=== PATIENT | female | born 1955 | race Caucasian/White ===

== ENCOUNTER → 2017-09-10 12:08 | Outpatient (CLI) | payer OTHER, SELFPAY ==
--- NOTE | 2017-09-10 12:21 | DI.RAD.S_ITS ---
PROCEDURE: XR SHOULDER RT MIN 2V INDICATIONS: R shoulder pain TECHNIQUE: 3 views of the shoulder were acquired. COMPARISON: None. FINDINGS: Bones: No fractures or dislocations. No suspicious bony lesions. Visualized ribs appear intact. There is extensive marginal glenohumeral spurring and mild glenohumeral joint space narrowing. There is severe AC joint degeneration. Soft tissues: No suspicious soft tissue calcifications. IMPRESSION: Right shoulder joint degeneration. Prominent marginal spurring Dictated by: Thong Portillo M.D. on 09/10/2017 at 14:25 Approved by: Thong Portillo M.D. on 09/10/2017 at 14:26
--- NOTE | 2017-09-10 12:21 | DI.RAD.S_ITS ---
PROCEDURE: XR KNEE RT 3V INDICATIONS: R knee pain - please do one weight bearing view TECHNIQUE: 3 views of the knee were acquired. COMPARISON: [facility], , KNEE 3V RIGHT, 12/26/2010, 8:16. FINDINGS: Bones: No fractures or dislocations. No suspicious bony lesions. Mild narrowing of the medial joint space. There is is degenerative spurring. Spurring of the superior pole of the patella. A pair of calcific densities again project in the posterior soft tissues, one of which may be a fabella although, for the other density, cannot exclude subcentimeter loose body Soft tissues: Small right knee joint effusion.. IMPRESSION: Mild degenerative joint disease. Small right knee joint effusion. Small posterior loose body. Dictated by: Thong Portillo M.D. on 09/10/2017 at 14:27 Approved by: Thong Portillo M.D. on 09/10/2017 at 14:29
== END ==
PROVIDERS: Family Provider Physician Assistant; PCP Physician Assistant; Visit Provider Physician Assistant
DX: R53.83 Other fatigue (principal); E03.9 Hypothyroidism, unspecified; M25.561 Pain in right knee; M25.511 Pain in right shoulder
CPT/HCPCS: 36415; 73030; 73562; 84439; 84443

== ENCOUNTER → 2018-01-13 07:22 | Outpatient (CLI) | payer OTHER, SELFPAY ==
[2018-01-13 09:14] LABS: Alanine Aminotransferase 27 IU/L (9-52); Albumin 4.3 g/dL (3.5-5.0); Albumin Globulin Ratio 1.5 (1.0-2.8); Alkaline Phosphatase 70 U/L (38-126); Aspartate Aminotransferase 21 IU/L (14-36); BUN Creatinine Ratio 18.6 (6-22); Blood Urea Nitrogen 13 mg/dL (7-17); Calcium 8.9 mg/dL (8.4-10.2); Carbon Dioxide 29 mmol/L (22-32); Chloride 104 mmol/L (98-107); Cholesterol 234 mg/dL (140-199); Estimated Glomerular Filt Rate > 60.0 mL/min (>60); Globulin 2.9 g/dL (1.7-4.1); Glucose 109 mg/dL (80-110); HDL Cholesterol 48 mg/dL (40-60); HEMOLYSIS < 15 (0-50); LDL Cholesterol Calculated 163 mg/dL (<100); Potassium 3.9 mmol/L (3.4-5.1); Sodium 145 mmol/L (137-145); Total Protein 7.2 g/dL (6.3-8.2); Triglycerides 116 mg/dL (35-150)
[2018-01-13 09:20] LABS: Creatinine Urine Random 108.4 mg/dL
[2018-01-13 09:23] LABS: Microalbumi Creatinin Ratio Ur 6.4 ug/mg CR (<30); Microalbumin Urine Random 0.7 mg/dL (0-1.6)
[2018-01-13 09:48] LABS: Thyroid Stimulating Hormone 1.16 uIU/mL (0.47-4.68)
== END ==
PROVIDERS: Family Provider Physician Assistant; PCP Physician Assistant; Visit Provider Physician Assistant
DX: E03.9 Hypothyroidism, unspecified (principal)
CPT/HCPCS: 36415; 80053; 80061; 82043; 82570; 84443

== ENCOUNTER → 2018-04-14 08:45 | Outpatient (CLI) | payer OTHER, SELFPAY ==
--- NOTE | 2018-04-14 | DI.MG.S_ITS ---
BILATERAL DIGITAL SCREENING MAMMOGRAM 3D/2D WITH CAD: 04/14/2018 CLINICAL: Routine screening. Family history of breast cancer. Comparison is made to exams dated: 03/06/2017 mammogram, 03/21/2015 mammogram, and 02/05/2014 mammogram - [facility]. There are scattered fibroglandular elements in both breasts. Current study was also evaluated with a Computer Aided Detection (CAD) system. No significant masses, calcifications, or other findings are seen in either breast. There has been no significant interval change. IMPRESSION: NEGATIVE There is no mammographic evidence of malignancy. A 1 year screening mammogram is recommended. This exam was interpreted at Station ID: [id number]. NOTE: For mammograms, a report in lay terms will be sent to the patient. Approximately 15% of breast malignancies will not be visualized mammographically. In the management of a palpable breast mass, a negative mammogram must not discourage biopsy of a clinically suspicious lesion. Electronically Signed By: Olga beard/rajinder:04/14/2018 09:24:48 letter sent: Normal Exam ACR BI-RADS Category 1: Negative [id number]
--- NOTE | 2018-04-14 08:47 | DI.US.S_ITS ---
PROCEDURE: US THYROID INDICATIONS: NODULES TECHNIQUE: Real-time scanning was performed of the thyroid gland, with image documentation. COMPARISON: [facility], US, THYROID, 01/24/2017, 11:26. FINDINGS: Right: Thyroid lobe measures 4.5 x 1.4 x 1.7 cm, and is homogeneous in echotexture. Left: Thyroid lobe measures 5.5 x 1.4 x 1.8 cm, and is homogenous in echotexture. Isthmus: 3.7 mm thick. Nodule number: 1 Location: Left mid/inferior lobe Size: 1.6 x 1.2 x 1.3 cm compared to 1.2 x 1.0 x 1.5 cm. Composition: Solid Echogenicity: Hypoechoic Shape: wider than tall. Margins: Smooth Echogenic foci: None Total points: 3 ACR TI-RADS category: 3 Nodule number: 2 Location: Left inferior lobe Size: 1.1 x 0.9 x 0.8 cm compared to 1.1 x 0.8 x 1.0 cm Composition: Solid Echogenicity: Hypoechoic Shape: wider than tall. Margins: Smooth Echogenic foci: None Total points: 3 ACR TI-RADS category: 3 Nodule number: 3 Location: Right mid/inferior lobe Size: 1.2 x 0.8 x 0.9 cm compared to 1.0 x 0.6 x 0.8 cm. Composition: Solid Echogenicity: Hypoechoic Shape: wider than tall. Margins: Smooth Echogenic foci: None Total points: 3 ACR TI-RADS category: 3 Nodule number: 4 Location: Right inferior lobe Size: 1.5 x 1.3 x 1.1 cm compared to 1.4 x 1.0 x 1.1 cm. Composition: Solid Echogenicity: Hypoechoic Shape: wider than tall. Margins: Smooth Echogenic foci: None Total points: 3 ACR TI-RADS category: 3 IMPRESSION: 1. Multiple thyroid nodules as above with lesions 2 through 4 appearing stable. There is a questionable small interval increase in size of lesion 1. While this could be secondary to scanning technique, small interval growth cannot be excluded. Three-month interval followup is recommended or fine needle aspiration. ACR TI-RADS definitions and recommendations: TI-RADS 1 (benign): 0 points. FNA not needed. TI-RADS 2 (not suspicious): 2 points. FNA not needed. TI-RADS 3 (mildly suspicious): 3 points. * FNA if 2.5 cm or larger, follow up if 1.5 cm or larger (at 1, 3, and 5 years). TI-RADS 4 (moderately suspicious): 4-6 points. * FNA if 1.5 cm or larger, follow up if 1 cm or larger (at 1, 2, 3, and 5 years). TI-RADS 5 (highly suspicious): 7 points or more. * FNA if 1 cm or larger, follow up if 0.5 cm or larger (every year for 5 years). Dictated by: Faith Patten M.D. on 04/14/2018 at 10:32 Approved by: Faith Patten M.D. on 04/14/2018 at 10:56
== END ==
PROVIDERS: Family Provider Physician Assistant; PCP Physician Assistant; Visit Provider Physician Assistant
DX: Z12.31 Encounter for screening mammogram for malignant neoplasm of breast (principal); Z80.3 Family history of malignant neoplasm of breast; E04.2 Nontoxic multinodular goiter; E03.9 Hypothyroidism, unspecified
CPT/HCPCS: 76536; 77063; 77067

== ENCOUNTER 2018-09-30 11:41 | Day surgery (SDC) | payer OTHER, SELFPAY ==
[2018-09-30] VITALS (8 sets, daily range): BP systolic 115–174; BP diastolic 56–84; PULSE 68–76; RESP 13–18; TEMP 36.3–36.9; O2SAT 92–99; BMI 30.9
--- NOTE | 2018-09-30 | PATH_ITS ---
[facility] Accession Number: [id number] . 01 Material submitted: . rectum - RECTAL POLYP . 01 Clinical history: . SCREENING COLONOSCOPY . 02 Diagnosis: Rectum, Polyp: Hyperplastic polyp. V/10/01/2018 . 02 Electronically signed: . Matt Retana MD, PhD, Pathologist NPI- [id number] . 01 Gross description: . RECTAL POLYP: Received in formalin is 1 fragment(s) of barton, soft tissue measuring 0.4 x 0.2 x 0.1 cm which is entirely submitted and submitted entirely in 1 cassette(s) /DMC /DMC . 02 Pathologist provided ICD-10: K62.1 . 02 CPT . 748260 Performed at: 01 [facility] [address] [place] [address], [place], [place] [id number] MD Josias Forte MD Phone: [phone] Performed at: 02 [facility] [address] [place], [place] [id number] MD Rosi Palm MD Phone: [phone]
[2018-09-30] MEDS: SODIUM CHLORIDE 0.9% 1,000 ML 100 ML IV (12:30)
--- NOTE | 2018-09-30 12:58 | PM.HP.1 ---
History of Present Illness Date Patient Seen: 09/30/18 Time Patient Seen: 12:58 Chief complaint: [id number] SCREENING COLONOSCOPY Narrative: 63-year-old woman presents 10 years after last screening colonoscopy -no abdominal complaints, no family history of colon or rectal cancers, no family history of colon polyps Tolerated her prep well Patient History Social History household members: spouse Smoking Status: Never smoker second hand exposure: No alcohol intake: current (a glass of wine occasionally when I go out to eat.) substance use type: does not use Family & Social History Social History: household members spouse Tobacco & Substance use: Smoking Status Never smoker alcohol intake current Meds Home Medications Medication Instructions Recorded Confirmed Type [Multi Vitamin] mg PO QDAY #0 01/28/12 08/25/18 History amlodipine 5 mg tablet 5 mg PO QDAY #90 tab 03/31/18 09/30/18 Rx levothyroxine 88 mcg tablet 88 mcg PO QAM #90 tab 03/31/18 09/30/18 Rx lisinopril 40 mg tablet 40 mg PO QDAY #90 tab 03/31/18 09/30/18 Rx meloxicam 7.5 mg tablet See Rx Instructions PO DAILY PRN 03/31/18 09/30/18 Rx #60 tab Allergies Allergy/AdvReac Type Severity Reaction Status Date / Time atorvastatin [ATORVASTATIN] AdvReac Severe MUSCLE Verified 08/25/18 09:16 ACHES [id number]-[id number]-Rjp Reductase AdvReac Severe MUSCLE Verified 08/25/18 09:16 Inhibitor ACHES [[id number] REDUCTASE INHIBITOR] hydrochlorothiazide AdvReac Intermediate REDNESS Verified 08/25/18 09:16 [HYDROCHLOROTHIAZIDE] AND RASH Review of Systems Constitutional Constitutional: Denies fever(s) Eyes Eyes: Denies bulging eyes ENT Ears, Nose, Mouth, and Throat: No lip swelling Cardiovascular Cardiovascular: Denies generalize swelling Respiratory Respiratory: Denies stridor Gastrointestinal Gastrointestinal: Denies coffee ground emesis Musculoskeletal Musculoskeletal: Denies loss of height Integumentary/Breasts Skin/Breast: Denies wounds Neurologic Neurologic: Denies abnormal speech and Denies confusion Psychiatric Psychiatric: Denies confusion Endocrine Endocrine: Denies deepening of the voice Hematologic/Lymphatic Hematologic/Lymphatic: Denies lymphadenopathy Allergic/Immunologic Allergic/Immunologic: Denies lip swelling Exam Vital Signs (past 8 hours): - 09/30/18 12:34 Temperature 97.8 F Pulse Rate 73 Respiratory Rate 15 Blood Pressure 174/84 H Pulse Oximetry 99 Oxygen Delivery Method Room Air Const General: cooperative and healthy appearing Orientation: alert HENMT Head: normal to inspection Nose: nares normal Mouth: oral mucosae normal and lip normal Eyes Eyelids: eyelids normal Conjunctivae: conjunctivae normal Sclera: sclerae normal Chest Chest: other (LCTAB , regular respiratory effort) Cardio Rhythm: regular rhythm Heart Sounds: S1 normal, S2 normal, no gallops, no murmurs and no rubs GI Other: Abdomen soft nontender nondistended Skin General: no rashes or lesions noted Neuro General: alert and awake Psych Appearance: grossly normal Affect: normal affect Assessment & Plan Assessment & Plan narrative: 63-year-old woman here for scheduled screening colonoscopy Risks and benefits of procedures discussed risks including bleeding, perforation, , hypoxia, missed lesion all discussed All questions answered patient ready to proceed
[2018-09-30] MEDS: MIDAZOLAM 5 MG/5 ML VIAL IV ×2 (13:13→13:34)
[2018-09-30] MEDS: fentaNYL 250 MCG/5 ML INJ IV (13:14)
[2018-09-30] MEDS: GLUCAGON,HUMAN RECOMBINANT 1 MG/ML VIAL IV (13:22)
--- NOTE | 2018-09-30 13:43 | PM.OP.ENDO ---
Operative Date/Time/Diagnoses Date of procedure: 09/30/18 Time of procedure: 13:43 Pre-op diagnosis: Colorectal cancer screening Post-op diagnosis: same Procedure & Clinicians Study performed: Complete screening colonoscopy Rectal polypectomy x1 with cold biopsy forceps Same procedure as scheduled: Yes Indications: 63-year-old presents 10 years after her prior screening colonoscopy Surgeon: Wang [place] Procedure Notes SCOAP/Timeout: Complete Procedure in detail: Patient was brought to the endoscopy suite a time-out was completed. She was sedated over the entire course of the procedure with 7 mg of midazolam and 150 micro g of fentanyl. A digital rectal exam without lesions. 160 cm colonoscope was introduced through the rectum and advanced navigate through the folds of the rectum and colon. There was a substantially tight turn at the hepatic flexure which required multiple scope advancements and retractions in order to negotiate. Ultimately this was successful the scope was advanced to level of the cecum. The ileocecal valve was somewhat polypoid looking at it from superiorly as well as inferiorly from IA retroflexed colonoscope, this appeared to be a normal variant. The cecum was identified via the ileocecal valve as above as well as the appendiceal orifice. Both were photographed. The scope was then slowly withdrawn inspecting the colonic mucosa carefully. No mucosal based abnormalities were identified within the colon, there is no diverticular disease. Within the mid rectum there was a single sessile small polyp -that may constitute a hyperplastic polyp. The scope was retroflexed in the distal rectum and no additional lesions were identified Prep was adequate Scope withdrawal time: 11 Sedation minutes: 37 Findings: other findings (Rectal polyp) Specimen(s): other (Rectal polyp) Complications: none Impression: Nearly normal screening colonoscopy Single rectal polyp status post polypectomy Recommendations: Other recommendation (Follow-up in 10 years if rectal polyp is hyperplastic, 5 years if the polyp is adenomatous) Plan for aftercare: PACU and then home Follow up: as needed Disposition: PACU
--- NOTE | 2018-09-30 14:04 | SUR.PHASEI ---
continued oxygen saturation below 90% when sleeping, easily arrousable with good deep breathing when awake. Oxygen applied at 2l/cannula. Allowed to sleep.
== END 2018-09-30 14:39 | disposition home or self-care (01) ==
PROVIDERS: Family Provider Physician Assistant; PCP Physician Assistant; Visit Provider Surgery
PROC: 0DJD8ZZ Inspection of Lower Intestinal Tract, Via Natural or Artificial Opening Endoscopic (ICD-10-PCS; CPT 45378; principal; 2018-09-30 13:00)
DX: Z12.11 Encounter for screening for malignant neoplasm of colon (principal); K62.1 Rectal polyp
CPT/HCPCS: 45380; 99152; 99153; J1610; J2250; J3010

== ENCOUNTER → 2018-11-24 08:09 | Outpatient (CLI) | payer OTHER, SELFPAY ==
[2018-11-24 09:17] LABS: BUN Creatinine Ratio 27.1 (6-22); Blood Urea Nitrogen 19 mg/dL (7-17); Calcium 8.8 mg/dL (8.4-10.2); Carbon Dioxide 26 mmol/L (22-32); Chloride 104 mmol/L (98-107); Cholesterol 237 mg/dL (140-199); Estimated Glomerular Filt Rate > 60.0 mL/min (>60); Glucose 113 mg/dL (80-110); HDL Cholesterol 45 mg/dL (40-60); HEMOLYSIS < 15 (0-50); LDL Cholesterol Calculated 166 mg/dL (<100); Potassium 3.9 mmol/L (3.4-5.1); Sodium 139 mmol/L (137-145); Triglycerides 131 mg/dL (35-150)
[2018-11-24 09:57] LABS: Thyroid Stimulating Hormone 1.12 uIU/mL (0.47-4.68)
== END ==
PROVIDERS: PCP Physician Assistant; Visit Provider Physician Assistant
DX: E03.8 Other specified hypothyroidism (principal); E06.3 Autoimmune thyroiditis; E78.5 Hyperlipidemia, unspecified; I10 Essential (primary) hypertension
CPT/HCPCS: 36415; 80048; 80061; 84443

== ENCOUNTER → 2019-01-21 08:36 | Outpatient (CLI) | payer OTHER, SELFPAY ==
--- NOTE | 2019-01-21 08:37 | DI.RAD.S_ITS ---
PROCEDURE: XR CERVICAL SPINE 2V OR 3V INDICATIONS: neck pain chronic with muscle spasm; possible osteoarthritis TECHNIQUE: 3 view(s) of the cervical spine were acquired. COMPARISON: None. FINDINGS: Bones: No fractures or dislocations to the C7-T1 level. The lateral masses of C1 appear intact on the odontoid view. No suspicious bony lesions. Multilevel bridging anterior osteophytes are present most notable at C4-5 and C5-6. Moderate disc space narrowing is present at C6-7, minimal to mild growth remainder of the cervical spine. Uncovertebral hypertrophy is also present. The Soft tissues: No prevertebral soft tissue swelling. IMPRESSION: Prominent degenerative change most normal from C4-C6 as above. Dictated by: Faith Patten M.D. on 01/21/2019 at 12:30 Approved by: Faith Patten M.D. on 01/21/2019 at 12:35
== END ==
PROVIDERS: PCP Physician Assistant; Visit Provider Physician Assistant
DX: M54.2 Cervicalgia (principal); M47.812 Spondylosis without myelopathy or radiculopathy, cervical region; M62.838 Other muscle spasm; G89.29 Other chronic pain
CPT/HCPCS: 72040

== ENCOUNTER → 2020-04-08 07:28 | Outpatient (CLI) | payer MEDICARE, SELFPAY ==
[2020-04-08] MEDS: COVID-19 VACC #1, MRNA(MOD) 100 MCG/0.5 ML VIAL IM (07:32)
== END ==
PROVIDERS: PCP Physician Assistant; Visit Provider Internal Medicine
DX: Z23 Encounter for immunization (principal)
CPT/HCPCS: 0011A; 91301

== ENCOUNTER → 2020-05-06 09:34 | Outpatient (CLI) | payer MEDICARE, SELFPAY ==
[2020-05-06] MEDS: COVID-19 VACC #2, MRNA(MOD) 100 MCG/0.5 ML VIAL IM (09:37)
== END ==
PROVIDERS: PCP Physician Assistant; Visit Provider Internal Medicine
DX: Z23 Encounter for immunization (principal)
CPT/HCPCS: 0012A; 91301

== ENCOUNTER → 2020-06-28 08:39 | Outpatient (CLI) | payer MEDICARE, SELFPAY ==
--- NOTE | 2020-06-28 08:42 | DI.RAD.S_ITS ---
PROCEDURE: XR KNEE RT 3V INDICATIONS: pain patellar TECHNIQUE: 3 views of the knee were acquired. COMPARISON: [facility], , XR KNEE RT 3V, 09/10/2017, 12:13. [facility], , KNEE 3V RIGHT, 12/26/2010, 8:16. FINDINGS: Bones: No fractures or dislocations. No suspicious bony lesions. Soft tissues: No joint effusion. No suspicious soft tissue calcifications. 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 Patellofemoral joint degenerative osteoarthritis is mild, with mild narrowing both at the medial and lateral facets. No joint effusion or intra-articular loose body is seen. Dictated by: Huber Jones M.D. on 06/28/2020 at 9:46 Approved by: Huber Jones M.D. on 06/28/2020 at 9:48
[2020-06-28 09:48] LABS: Add Manual Diff / Slide Review NO; Basophils Absolute Auto 0 /uL (0-100); Basophils Percent Auto 0.6 % (0-2); Eosinophils Absolute Auto 200 /uL (0-450); Eosinophils Percent Auto 3.1 % (2-4); Hematocrit 42.9 % (36-46); Hemoglobin 14.8 g/dL (12.0-16.0); Lymphocytes Absolute Auto 1600 /uL (1100-4500); Lymphocytes Percent Auto 27.6 % (25-40); Mean Corpuscular HGB Conc 34.5 % (30-36); Mean Corpuscular Volume 84.1 fL (80-100); Monocytes Absolute Auto 500 /uL (0-900); Monocytes Percent Auto 9.1 % (3-14); Neutrophils Absolute Auto 3400 /uL (1500-7000); Neutrophils Percent Auto 59.6 % (50-75); Platelet Count 183 X10^3/uL (150-400); Red Blood Cell Count 5.11 X10^6/uL (4.0-5.2); Red Cell Distribution Width 14.1 % (11.6-14.8); White Blood Cell Count 5.8 X10^3/uL (4.5-11.0)
[2020-06-28 10:02] LABS: Alanine Aminotransferase 21 IU/L (<35); Albumin 4.1 g/dL (3.5-5.0); Albumin Globulin Ratio 1.3 (1.0-2.8); Alkaline Phosphatase 76 U/L (38-126); Aspartate Aminotransferase 22 IU/L (14-36); BUN Creatinine Ratio 29.6 (6-22); Blood Urea Nitrogen 21 mg/dL (7-17); Carbon Dioxide 30 mmol/L (22-32); Chloride 105 mmol/L (98-107); Cholesterol 248 mg/dL (140-199); Estimated Glomerular Filt Rate > 60.0 mL/min (>60); Globulin 3.1 g/dL (1.7-4.1); Glucose 122 mg/dL (80-110); HDL Cholesterol 41 mg/dL (40-60); HEMOLYSIS < 15 (0-50); LDL Cholesterol Calculated 177 mg/dL (<100); Potassium 3.9 mmol/L (3.4-5.1); Sodium 140 mmol/L (137-145); Total Protein 7.2 g/dL (6.3-8.2); Triglycerides 150 mg/dL (35-150)
[2020-06-28 10:13] LABS: Free T3, Triiodothyronine Free 3.16 pg/mL (2.77-5.27); Free T4, Direct Thyroxine 1.38 ng/dL (0.78-2.19)
== END ==
PROVIDERS: PCP Family Medicine; Referring Provider Family Medicine; Visit Provider Family Medicine
DX: G89.29 Other chronic pain (principal); M25.561 Pain in right knee; E03.8 Other specified hypothyroidism; E06.3 Autoimmune thyroiditis; E78.5 Hyperlipidemia, unspecified; I10 Essential (primary) hypertension
CPT/HCPCS: 36415; 73562; 80053; 80061; 84439; 84443; 84481; 85025

== ENCOUNTER → 2022-02-08 07:36 | Outpatient (CLI) | payer MEDICARE, SELFPAY ==
[2022-02-08 08:01] LABS: Add Manual Diff / Slide Review NO; Basophils Absolute Auto 0 /uL (0-100); Basophils Percent Auto 0.6 % (0-2); Eosinophils Absolute Auto 100 /uL (0-450); Eosinophils Percent Auto 2.6 % (2-4); Hematocrit 40.4 % (36-46); Hemoglobin 13.5 g/dL (12.0-16.0); Lymphocytes Absolute Auto 1700 /uL (1100-4500); Lymphocytes Percent Auto 32.8 % (25-40); Mean Corpuscular HGB Conc 33.5 % (30-36); Mean Corpuscular Hemoglobin 28.4 PG (26-34); Monocytes Absolute Auto 600 /uL (0-900); Monocytes Percent Auto 11.7 % (3-14); Neutrophils Absolute Auto 2800 /uL (1500-7000); Neutrophils Percent Auto 52.3 % (50-75); Platelet Count 210 X10^3/uL (150-400); Red Blood Cell Count 4.75 X10^6/uL (4.0-5.2); Red Cell Distribution Width 13.7 % (11.6-14.8); White Blood Cell Count 5.3 X10^3/uL (4.5-11.0)
[2022-02-08 08:19] LABS: Alanine Aminotransferase 24 IU/L (<35); Albumin 3.8 g/dL (3.5-5.0); Albumin Globulin Ratio 1.4 (1.0-2.8); Alkaline Phosphatase 67 U/L (38-126); Aspartate Aminotransferase 21 IU/L (14-36); BUN Creatinine Ratio 24.4 (6-22); Blood Urea Nitrogen 19 mg/dL (7-17); Calcium 8.9 mg/dL (8.4-10.2); Carbon Dioxide 28 mmol/L (22-32); Chloride 104 mmol/L (98-107); Cholesterol 225 mg/dL (140-199); Estimated Glomerular Filt Rate > 60 mL/min (>60); Globulin 2.8 g/dL (1.7-4.1); Glucose 116 mg/dL (80-110); HDL Cholesterol 47 mg/dL (40-60); HEMOLYSIS < 15 (0-50); LDL Cholesterol Calculated 152 mg/dL (<100); Potassium 3.9 mmol/L (3.4-5.1); Sodium 137 mmol/L (137-145); Total Protein 6.6 g/dL (6.3-8.2); Triglycerides 132 mg/dL (35-150)
[2022-02-08 08:41] LABS: TSH w/ Reflex to FT4 0.43 uIU/mL (0.47-4.68)
[2022-02-08 09:06] LABS: Free T4, Direct Thyroxine 1.58 ng/dL (0.78-2.19)
== END ==
PROVIDERS: PCP Family Medicine; Referring Provider Family Medicine; Visit Provider Family Medicine
DX: E03.8 Other specified hypothyroidism (principal); E06.3 Autoimmune thyroiditis; E78.5 Hyperlipidemia, unspecified; I10 Essential (primary) hypertension
CPT/HCPCS: 80053; 80061; 84439; 84443; 85025

== ENCOUNTER → 2022-05-09 07:39 | Outpatient (CLI) | payer MEDICARE, SELFPAY ==
[2022-05-09 10:09] LABS: TSH w/ Reflex to FT4 0.86 uIU/mL (0.47-4.68)
== END ==
PROVIDERS: PCP Family Medicine; Referring Provider Family Medicine; Visit Provider Family Medicine
DX: E03.8 Other specified hypothyroidism (principal); E06.3 Autoimmune thyroiditis
CPT/HCPCS: 36415; 84443

== ENCOUNTER → 2022-05-16 11:06 | Outpatient (CLI) | payer MEDICARE, SELFPAY ==
--- NOTE | 2022-05-16 11:07 | DI.RAD.S_ITS ---
PROCEDURE: XR SHOULDER RT MIN 2V INDICATIONS: shoulder problem TECHNIQUE: 3 views of the shoulder were acquired. COMPARISON: [facility], CR, XR SHOULDER RT MIN 2V, 09/10/2017, 12:13. FINDINGS: Bones: Moderate glenohumeral and moderate to severe acromioclavicular arthrosis. These findings are slightly progressed compared to 2018. No displaced fracture or dislocation. Soft tissues: No suspicious soft tissue calcifications. IMPRESSION: Slightly progressed, advanced arthrosis of the glenohumeral and acromioclavicular joints. Dictated by: Immanuel Cunningham M.D. on 05/16/2022 at 16:22 Approved by: Immanuel Cunningham M.D. on 05/16/2022 at 16:23
== END ==
PROVIDERS: PCP Family Medicine; Referring Provider Family Medicine; Visit Provider Family Medicine
DX: M25.511 Pain in right shoulder (principal); M25.611 Stiffness of right shoulder, not elsewhere classified; G89.29 Other chronic pain; M99.07 Segmental and somatic dysfunction of upper extremity; M19.011 Primary osteoarthritis, right shoulder
CPT/HCPCS: 73030

== ENCOUNTER → 2023-02-16 07:49 | Outpatient (CLI) | payer MEDICARE, SELFPAY ==
[2023-02-16 08:05] LABS: Add Manual Diff / Slide Review NO; Basophils Absolute Auto 0 /uL (0-100); Basophils Percent Auto 0.7 % (0-2); Eosinophils Absolute Auto 300 /uL (0-450); Eosinophils Percent Auto 4.2 % (2-4); Hematocrit 41.7 % (36-46); Hemoglobin 14.3 g/dL (12.0-16.0); Lymphocytes Absolute Auto 1800 /uL (1100-4500); Lymphocytes Percent Auto 29.7 % (25-40); Mean Corpuscular HGB Conc 34.3 % (30-36); Mean Corpuscular Hemoglobin 28.7 PG (26-34); Mean Corpuscular Volume 83.7 fL (80-100); Monocytes Absolute Auto 700 /uL (0-900); Neutrophils Absolute Auto 3400 /uL (1500-7000); Neutrophils Percent Auto 54.4 % (50-75); Platelet Count 229 X10^3/uL (150-400); Red Blood Cell Count 4.98 X10^6/uL (4.0-5.2); Red Cell Distribution Width 14.1 % (11.6-14.8); White Blood Cell Count 6.2 X10^3/uL (4.5-11.0)
[2023-02-16 08:23] LABS: Alanine Aminotransferase 21 IU/L (<35); Albumin Globulin Ratio 1.3 (1.0-2.8); Alkaline Phosphatase 65 U/L (38-126); Aspartate Aminotransferase 23 IU/L (14-36); Blood Urea Nitrogen 19 mg/dL (7-17); Carbon Dioxide 29 mmol/L (22-32); Chloride 103 mmol/L (98-107); Cholesterol 236 mg/dL (140-199); Estimated Glomerular Filt Rate > 60 mL/min (>60); Globulin 3.1 g/dL (1.7-4.1); Glucose 123 mg/dL (80-110); HDL Cholesterol 46 mg/dL (40-60); HEMOLYSIS 30 (0-50); LDL Cholesterol Calculated 163 mg/dL (<100); Sodium 135 mmol/L (137-145); Total Protein 7.1 g/dL (6.3-8.2); Triglycerides 134 mg/dL (35-150)
[2023-02-16 08:54] LABS: TSH w/ Reflex to FT4 1.11 uIU/mL (0.47-4.68)
[2023-02-16 09:28] LABS: Folate 9.6 ng/mL (2.76-20.0)
== END ==
PROVIDERS: PCP Family Medicine; Referring Provider Family Medicine; Visit Provider Family Medicine
DX: E03.9 Hypothyroidism, unspecified (principal); E78.5 Hyperlipidemia, unspecified; I10 Essential (primary) hypertension; L60.9 Nail disorder, unspecified
CPT/HCPCS: 36415; 80053; 80061; 82746; 84443; 85025

== ENCOUNTER → 2023-09-06 06:54 | Outpatient (CLI) | payer MEDICARE, SELFPAY ==
[2023-09-06 07:50] LABS: Hemoglobin A1C% w Est Avg Glu 6.2 % (4.0-6.0)
[2023-09-06 08:09] LABS: Alanine Aminotransferase 20 IU/L (<35); Albumin 4.1 g/dL (3.5-5.0); Albumin Globulin Ratio 1.4 (1.0-2.8); Alkaline Phosphatase 76 U/L (38-126); Aspartate Aminotransferase 22 IU/L (14-36); BUN Creatinine Ratio 25.3 (6-22); Bilirubin Total 1.1 mg/dL (0.2-1.3); Blood Urea Nitrogen 21 mg/dL (7-17); Calcium 8.5 mg/dL (8.4-10.2); Carbon Dioxide 28 mmol/L (22-32); Chloride 105 mmol/L (98-107); Cholesterol 209 mg/dL (140-199); Estimated Glomerular Filt Rate > 60 mL/min (>60); Globulin 2.9 g/dL (1.7-4.1); Glucose 131 mg/dL (80-110); HDL Cholesterol 50 mg/dL (40-60); HEMOLYSIS < 15 (0-50); LDL Cholesterol Calculated 131 mg/dL (<100); Potassium 3.8 mmol/L (3.4-5.1); Sodium 138 mmol/L (137-145); Triglycerides 140 mg/dL (35-150)
[2023-09-06 08:40] LABS: TSH w/ Reflex to FT4 1.45 uIU/mL (0.47-4.68)
[2023-09-06 08:44] LABS: Creatinine Urine Random 59.23 mg/dL
[2023-09-06 08:49] LABS: Microalbumin Urine Random 0.8 mg/dL (0-1.6)
== END ==
LOC: LAB 06:55
PROVIDERS: PCP Family Medicine; Referring Provider Family Medicine; Visit Provider Family Medicine
DX: R73.03 Prediabetes (principal); I10 Essential (primary) hypertension; E78.5 Hyperlipidemia, unspecified; E03.8 Other specified hypothyroidism; E06.3 Autoimmune thyroiditis
CPT/HCPCS: 36415; 80053; 80061; 82043; 82570; 83036; 84443

== ENCOUNTER → 2023-12-20 06:51 | Outpatient (CLI) | payer MEDICARE, SELFPAY ==
[2023-12-20 08:42] LABS: Cholesterol 177 mg/dL (140-199); Glucose 131 mg/dL (80-110); HDL Cholesterol 46 mg/dL (40-60); LDL Cholesterol Calculated 106 mg/dL (<100); Triglycerides 125 mg/dL (35-150)
[2023-12-20 11:44] LABS: Hemoglobin A1C% w Est Avg Glu 6.3 % (4.0-6.0)
== END ==
PROVIDERS: PCP Family Medicine; Referring Provider Family Medicine; Visit Provider Family Medicine
DX: R73.03 Prediabetes (principal); E78.5 Hyperlipidemia, unspecified
CPT/HCPCS: 36415; 80061; 82947; 83036

== ENCOUNTER → 2024-02-20 08:26 | Outpatient (CLI) | payer MEDICARE, SELFPAY ==
[2024-02-20 09:20] LABS: Influenza A - CEPHEID Flu A POSITIVE (NEGATIVE); Influenza B - CEPHEID Flu B NEGATIVE (NEGATIVE); Respiratory Syncytial Virus Negative (Negative)
[2024-02-20 09:27] LABS: COVID-19 CEPHEID 4-PLEX PCR Negative (Negative)
== END ==
PROVIDERS: PCP Family Medicine; Visit Provider Physician Assistant Surgical
DX: R05.1 Acute cough (principal)
CPT/HCPCS: 0241U

== ENCOUNTER → 2024-12-08 07:55 | Outpatient (CLI) | payer MEDICARE, SELFPAY ==
[2024-12-08 09:59] LABS: Add Manual Diff / Slide Review NO; Hematocrit 44.7 % (36-46); Hemoglobin 15.4 g/dL (12.0-16.0); Lymphocytes Absolute Auto 1400 /uL (1100-4500); Mean Corpuscular HGB Conc 34.3 % (30-36); Mean Corpuscular Hemoglobin 29.1 PG (26-34); Mean Corpuscular Volume 84.8 fL (80-100); Platelet Count 215 X10^3/uL (150-400)
[2024-12-08 10:13] LABS: Alanine Aminotransferase 26 IU/L (<35); Albumin 4.3 g/dL (3.5-5.0); Albumin Globulin Ratio 1.6 (1.0-2.8); Alkaline Phosphatase 71 U/L (38-126); Blood Urea Nitrogen 19 mg/dL (7-17); Calcium 9.1 mg/dL (8.4-10.2); Carbon Dioxide 26 mmol/L (22-32); Chloride 104 mmol/L (98-107); Cholesterol 229 mg/dL (140-199); Estimated Glomerular Filt Rate > 60 mL/min (>60); Globulin 2.7 g/dL (1.7-4.1); Glucose 120 mg/dL (70-99); HDL Cholesterol 52 mg/dL (40-60); HEMOLYSIS < 15 (0-50); Potassium 4.4 mmol/L (3.4-5.1); Sodium 140 mmol/L (137-145); Total Protein 7.0 g/dL (6.3-8.2); Triglycerides 131 mg/dL (35-150)
[2024-12-08 10:31] LABS: Vitamin D 25 Hydroxy (D3) 39.5 ng/mL (30.0-100.0)
[2024-12-08 10:43] LABS: TSH w/ Reflex to FT4 0.97 uIU/mL (0.47-4.68)
[2024-12-08 11:02] LABS: Vitamin B12 589 pg/mL (239-931)
== END ==
PROVIDERS: PCP Family Medicine; Referring Provider Family Medicine; Visit Provider Family Medicine
DX: R73.03 Prediabetes (principal); E78.5 Hyperlipidemia, unspecified; I10 Essential (primary) hypertension; E03.9 Hypothyroidism, unspecified
CPT/HCPCS: 36415; 80053; 80061; 82306; 82607; 84443; 85025